=== PATIENT | female | born 1960 | race Two or more races ===

== ENCOUNTER 2023-09-30 05:33 | Day surgery (SDC) | payer OTHER ==
[~2023-09-30] VITALS: Ht 167.6 cm; Wt 65.3 kg
[~2023-09-30 05:33] MED LIST: FOSAMAX70 MG PO; LINZESS145 MCG PO; LIPITOR40 M1 PO; PROTONIX40 MG PO; ROGAINE60 GM TOP; SUCRALFATE PO; SYNTHROID88 MCG PO
[2023-09-30] MEDS ORDERED: METRONIDAZOLE/SODIUM CHLORIDE 500 MG/100 ML PIGGYBACK IV ONE (06:19)
[2023-09-30] MEDS ORDERED: CEFTRIAXONE SODIUM 2,000 MG VIAL ONE (06:19)
[2023-09-30] MEDS ORDERED: BUPIVACAINE HCL 30 ML VIAL IJ ONE (08:30)
[2023-09-30] MEDS ORDERED: LIDOCAINE HCL 1%/EPINEPHRINE 20ML VIAL IJ ONE (08:30)
[2023-09-30] MEDS ORDERED: TRAM1TAB98 PO (08:47)
== END 2023-09-30 11:50 | disposition home or self-care (01) ==
LOC: O/R 05:33 → CIR.AMB 05:33 → SURG 05:33 → EDSTATUS 10:45 → SURG 10:45 → O/R 11:50 → CIR.AMB 11:50
PROVIDERS: ATTEND Surgery
DX: K35.30 Acute appendicitis with localized peritonitis, without perforation or gangrene (principal)